=== PATIENT | male | born 1980 | race Caucasian/White ===

== ENCOUNTER 2017-05-03 02:36 | Emergency (ER) | payer SELFPAY ==
[~2017-05-03] VITALS: Ht 180.3 cm; Wt 81.2 kg
[~2017-05-03 02:36] MED LIST: BACTRIM DS 8001 TA1 PO; KEFLEX500 MG PO; MOTRIN800 MG PO; NKHM; NORCO 325 MG-51 TAB PO; ROBAXIN750 MG PO; ROBITUSSIN DM120 ML PO; TRAMADOL HCL50 MG PO; VICODIN ES 7501 TAB PO; ZANTAC150 MG PO; ZITHROMAX Z PA250 MG PO; ZOFRAN4 MG PO
[2017-05-03] MEDS ORDERED: BACTRIM DS 8001 TA1 PO (03:06)
[2017-05-03] MEDS ORDERED: Motrin,Rufen800 MG PO (03:06)
[2017-05-03] MEDS ORDERED: KEFLEX500 M1 PO (03:06)
== END 2017-05-03 03:50 | disposition home or self-care (01) ==
LOC: ED 02:36
DX: S50.361A Insect bite (nonvenomous) of right elbow, initial encounter (principal); F17.200 Nicotine dependence, unspecified, uncomplicated; Z88.8 Allergy status to other drugs, medicaments and biological substances; W57.XXXA Bitten or stung by nonvenomous insect and other nonvenomous arthropods, initial encounter; Y93.89 Activity, other specified; Y92.9 Unspecified place or not applicable; Y99.9 Unspecified external cause status

== ENCOUNTER 2017-12-30 21:26 | Emergency (ER) | payer OTHER ==
[~2017-12-30] VITALS: Ht 180.3 cm; Wt 90.7 kg
[~2017-12-30 21:26] MED LIST changes: +KEFLEX500 M1 PO; +Motrin,Rufen800 MG PO
[2017-12-30] MEDS ORDERED: SEPTDS PO (22:51)
[2017-12-30] MEDS ORDERED: Motrin,Rufen800 MG PO (22:51)
== END 2017-12-30 22:54 | disposition home or self-care (01) ==
LOC: ED 21:26
DX: L02.415 Cutaneous abscess of right lower limb (principal); M79.671 Pain in right foot; F17.200 Nicotine dependence, unspecified, uncomplicated; Z86.14 Personal history of Methicillin resistant Staphylococcus aureus infection; Z88.8 Allergy status to other drugs, medicaments and biological substances

== ENCOUNTER 2020-07-10 08:10 | Emergency (ER) | payer OTHER ==
[~2020-07-10] VITALS: Ht 180.3 cm; Wt 104.3 kg
[~2020-07-10 08:10] MED LIST changes: +SEPTDS PO
== END 2020-07-10 11:21 | disposition home or self-care (01) ==
LOC: ED 08:10
DX: S02.2XXA Fracture of nasal bones, initial encounter for closed fracture (principal); S09.90XA Unspecified injury of head, initial encounter; Z23 Encounter for immunization; Z88.8 Allergy status to other drugs, medicaments and biological substances; Z79.899 Other long term (current) drug therapy; W19.XXXA Unspecified fall, initial encounter; Y93.89 Activity, other specified; Y92.89 Other specified places as the place of occurrence of the external cause; Y99.8 Other external cause status

== ENCOUNTER 2020-08-10 23:56 | Emergency (ER) | payer OTHER ==
[2020-08-11] MEDS ORDERED: AUGMENTIN 875-875 MG PO (00:29)
== END 2020-08-11 00:35 | disposition home or self-care (01) ==
LOC: ED 23:56
DX: S01.551A Open bite of lip, initial encounter (principal); Z88.8 Allergy status to other drugs, medicaments and biological substances; W54.0XXA Bitten by dog, initial encounter; Y93.89 Activity, other specified; Y92.89 Other specified places as the place of occurrence of the external cause; Y99.8 Other external cause status

== ENCOUNTER 2024-03-02 03:06 | Emergency (ER) | payer OTHER ==
[~2024-03-02] VITALS: Ht 180.3 cm; Wt 99.8 kg
[~2024-03-02 03:06] MED LIST changes: +AUGMENTIN 875-875 MG PO
[2024-03-02] MEDS ORDERED: Tdap Vaccine 0.5 ML SYR (Adult Vaccine) IM ONE (03:20)
[2024-03-02] MEDS ORDERED: CEPHALEXIN500 M1 PO (03:49)
== END 2024-03-02 04:04 | disposition home or self-care (01) ==
LOC: ED 03:06
DX: S61.012A Laceration without foreign body of left thumb without damage to nail, initial encounter (principal); Z88.8 Allergy status to other drugs, medicaments and biological substances; Z98.890 Other specified postprocedural states; Z87.891 Personal history of nicotine dependence; W26.8XXA Contact with other sharp object(s), not elsewhere classified, initial encounter; Y93.89 Activity, other specified; Y92.89 Other specified places as the place of occurrence of the external cause; Y99.8 Other external cause status